=== PATIENT | female | born 1950 | race Caucasian/White ===

== ENCOUNTER → 2020-04-09 | Outpatient (CLI) | payer MEDICARE ==
[~2020-04-09] MED LIST: AMIT50TA PO; CRANBERRY FRUIT PO; GABA400C PO; ONE A DAY PO; SPIR25TA5 PO; TOPI25TA8 PO; TRAM50TA2 PO; VITAMIN B12 PO
[2020-04-09 12:30] LABS: ALANINE AMINOTRANSFERASE 26 U/L (12-78); ALBUMIN 3.6 g/dL (3.4-5.0); ANION GAP 4 mmol/L (5-15); CHLORIDE 111 mmol/L (98-107)
[2020-04-09 12:34] LABS: ALKALINE PHOSPHATASE 99 U/L (45-117); BILIRUBIN,TOTAL 0.5 mg/dL (0.2-1.0); CREATININE 0.78 mg/dL (0.55-1.02)
== END | disposition home or self-care (01) ==
LOC: STAR 10:44
PROVIDERS: ATTEND Orthopaedic Surgery
DX: Z01.818 Encounter for other preprocedural examination (principal); M65.341 Trigger finger, right ring finger; R94.31 Abnormal electrocardiogram [ECG] [EKG]; Z20.822 Contact with and (suspected) exposure to COVID-19
CPT/HCPCS: 80053; 87635; 93005

== ENCOUNTER 2020-04-14 06:09 | Day surgery (SDC) | payer MEDICARE ==
[~2020-04-14] VITALS: Ht 160 cm; Wt 69.0 kg
[2020-04-14 07:09] VITALS: BP 137/71
[2020-04-14] MEDS ORDERED: CHLORHEXIDINE 15 ML UDC ONE (07:13)
[2020-04-14] MEDS ORDERED: CHLORHEXIDINE 15 ML UDC MM ONE (07:30)
[2020-04-14] MEDS ORDERED: LACTATED RINGERS 1,000 ML IV SCH (07:30)
[2020-04-14] MEDS ORDERED: MIDAZOLAM 1 MG/ML, 2ML ONE (07:38)
[2020-04-14] MEDS ORDERED: ACETAMINOPHEN 325 MG TABLET PO PRN (08:00)
[2020-04-14] MEDS ORDERED: KETOROLAC 30 MG/1 ML IV PRN (08:00)
[2020-04-14] MEDS ORDERED: FENTANYL PF 100 MCG/2ML IV PRN (08:00)
[2020-04-14] MEDS ORDERED: PROMETHAZINE 25 MG/ML, 1ML IV PRN (08:00)
[2020-04-14] MEDS ORDERED: HYDROmorphone 2 MG/ML, 1ML IVPush PRN (08:00)
[2020-04-14] MEDS ORDERED: DIAZEPAM 5 MG/ML, 2ML IVPush PRN (08:00)
[2020-04-14] MEDS ORDERED: ALBUTEROL SULFATE 2.5 MG/3 ML NPPB PRN (08:00)
[2020-04-14] MEDS ORDERED: OXYcodone 5 MG/5 ML ORAL.SOL UDC PO PRN (08:00)
[2020-04-14] MEDS ORDERED: MEPERIDINE/PF 25MG/0.5ML IVPush PRN (08:00)
[2020-04-14] MEDS ORDERED: LABETALOL 5MG/ML, 20ML IV PRN (08:00)
[2020-04-14] MEDS ORDERED: hydrALAzine 20 MG/ML, 1ML IV PRN (08:00)
== END 2020-04-14 09:10 | disposition home or self-care (01) ==
LOC: OUT 06:09
PROVIDERS: ATTEND Orthopaedic Surgery
DX: M65.341 Trigger finger, right ring finger (principal); M65.841 Other synovitis and tenosynovitis, right hand; M18.0 Bilateral primary osteoarthritis of first carpometacarpal joints; I10 Essential (primary) hypertension; G43.909 Migraine, unspecified, not intractable, without status migrainosus; M79.7 Fibromyalgia; G40.909 Epilepsy, unspecified, not intractable, without status epilepticus; Z79.891 Long term (current) use of opiate analgesic; Z79.899 Other long term (current) drug therapy; Z85.43 Personal history of malignant neoplasm of ovary
CPT/HCPCS: 26055; J2250; J7120